=== PATIENT | female | born 1965 | race Caucasian/White ===

== ENCOUNTER → 2023-06-20 11:44 | Outpatient (REF) | payer MEDICARE, BC, SELFPAY | LOC: WDC 11:44 | PROVIDERS: ATTENDING PHYSICIAN Obstetrics & Gynecology; FAMILY PHYSICIAN Nurse Practitioner Family | DX: Z12.31 Encounter for screening mammogram for malignant neoplasm of breast (principal) | CPT/HCPCS: 77063; 77067 ==

== ENCOUNTER → 2023-07-15 06:26 | Day surgery (SDC) | payer BC, MEDICARE, SELFPAY | LOC: GI 06:26 | PROVIDERS: ATTENDING PHYSICIAN Internal Medicine; FAMILY PHYSICIAN Nurse Practitioner Family | DX: Z12.11 Encounter for screening for malignant neoplasm of colon (principal); D12.3 Benign neoplasm of transverse colon; D17.79 Benign lipomatous neoplasm of other sites; K57.30 Diverticulosis of large intestine without perforation or abscess without bleeding; K64.9 Unspecified hemorrhoids; Z86.010 Personal history of colon polyps | CPT/HCPCS: 45385; 45380; 88305 ==

== ENCOUNTER 2024-03-12 13:00 | Emergency (ER) | payer BC, MEDICARE, SELFPAY ==
[2024-03-12 13:02] VITALS: BP 150/85
[2024-03-12 13:33] LABS: % Basophils 0.5 % (0-2); % Eosinophils 1.7 % (0-6); % Immature Granulocytes 0.3 % (0-0.5); % Lymphocytes 16.7 % (20.5-51.1); % Neutrophils 75.8 % (42.2-75.2); Absolute Eosinophils 0.2 10^3/uL (0-0.7); Absolute Lymphocytes 1.5 10^3/uL (1.2-3.4); Absolute Monocytes 0.4 10^3/uL (0.1-0.6); Absolute Neutrophils 6.6 10^3/uL (1.4-6.5); Hematocrit 39.3 % (37.0-47.0); Mean Corp Hgb Conc. 33.1 g/dL (33.0-37.0); Mean Corpuscular Hgb 29.5 pg (27.0-31.0); Mean Corpuscular Volume 89.3 fL (81.0-99.0); Mean Platelet Volume 9.5 fL (7.4-10.4); Nucleated Red Blood Cells % 0 %; Platelet Count 275 10^3/uL (130-400); Red Cell Dist. Width 13.4 % (11.5-14.5); White Blood Cell Count 8.7 10^3/uL (4.8-10.8)
[2024-03-12 13:47] LABS: ALT (SGPT) 24 U/L (0-35); AST (SGOT) 26 U/L (14-36); Albumin 4.4 g/dl (3.5-5.0); Alkaline Phosphatase 53 U/L (38-126); Blood Urea Nitrogen 19 mg/dl (7-17); Calcium 9.3 mg/dl (8.4-10.2); Carbon Dioxide 26 mmol/L (22-30); Chloride 100 mmol/L (98-107); Glucose 103 mg/dl (70-99); Potassium 4.4 mmol/L (3.5-5.1); Sodium 134 mmol/L (135-145); Total Bilirubin 0.2 mg/dl (0.2-1.3); Total Protein 7.2 g/dl (6.3-8.2); eGFR > 60.00
[2024-03-12 14:00] LABS: Troponin I < 0.012 ng/ml
--- NOTE | 2024-03-12 16:04 | ED.GENMED ---
History of Present Illness
General
Chief Complaint: Chest Pain
Source: patient
Exam Limitations: none
Time Seen by Provider: 03/12/24 16:03
Nursing documentation reviewed up to this point in time: agreed with
History of Present Illness
History of Present Illness:
58-year-old female with history of sleep apnea with CPAP, ablation for SVT x 2, last in 1999, anxiety/depression presents for 4 or 5 days of intermittent left breast area chest pain that started the evening after she was shovelling snow. She states
this morning since 11 AM it was nonstop for about 2 hours and now it is 3/10. There were no associated symptoms such as diaphoresis, nausea, shortness of breath. She has taken nothing for the pain
Past History
Past History
ED Past Medical History: Arrthythmia (svt w ablation) and Psychiatric (anxiety/depression)
ED Past Surgical History: Cardiac (Cardiac ablation x2) and Orthopedic
Social History
Tobacco: Non-smoker
Alcohol: None
Drug: None
Personal:
Living: with family
Employment: Not employed
Review of Systems
Review of Systems
Allergies reviewed?: Yes
All Other Systems: ROS reviewed and negative except as documented in HPI and ROS
Constitutional: Denies fever or fatigue
Respiratory: Denies trouble breathing
Cardiac: Reports chest pain; Denies diaphoresis, palpitations or syncope
ABD/GI: Denies abdominal pain or nausea
Musculoskeletal: Reports no symptoms
Skin: Reports no symptoms
Neurological: Reports no symptoms
Phy Exam
Physical Exam
Physical Exam:
GENERAL: No acute distress. A&Ox3.
CONSTITUTIONAL: Afebrile.
EYES: clear, conjunctivae normal
ENMT: moist mucus membranes, Pharynx nl
RESPIRATORY: Regular respirations, nonlabored, lungs clear.
CARDIOVASCULAR: Regular rate and rhythm, no murmurs, no rubs.
GI: Soft, nontender, normal BS
MUSCULOSKELETAL: Chest wall, breast nontender to compression/palpation, moves with ease. Well perfused.
SKIN: Warm, dry, pink
PSYCH: Normal mood and affect. Well kept, interactive and appropriate
NEUROLOGIC: Awake, alert and oriented. No focal neurological deficits
Scores
Heart Score for Chest Pain Patients
STEMI patient?: Not applicable
Course
Orders/Labs/Results
Orders:
Orders
03/12/24 13:00
ECG [Electrocardiogram (*1)] Urgent
Reason for Study: Chest Pain
EKG- Treatment ONCE
03/12/24 13:18
Complete Blood Count/With Diff Urgent
Comprehensive Metabolic Panel Urgent
03/12/24 13:19
Troponin I Urgent
03/12/24 16:22
CR Chest - 2 Views Urgent
Comment:
Reason For Exam: left chest pain
Abnormal Lab Results
03/12/24
13:18
Absolute Neuts (auto) 6.6 H 10^3/uL
(1.4-6.5)
Neutrophils % 75.8 H %
(42.2-75.2)
Lymphocytes % 16.7 L %
(20.5-51.1)
Sodium 134 L mmol/L
(135-145)
BUN 19 H mg/dl
(7-17)
Glucose 103 H mg/dl
(70-99)
03/12/24 13:18
03/12/24 13:18
Vital Signs
Initial and Last Documented VS:
Initial Vital Signs
Temp Pulse Resp BP Pulse Ox
98.1 F 78 18 150/85 99
03/12/24 13:02 03/12/24 13:02 03/12/24 13:02 03/12/24 13:02 03/12/24 13:02
Last Documented Vital Signs
Temp Pulse Resp BP Pulse Ox
98.1 F 78 16 129/82 96
03/12/24 13:02 03/12/24 16:46 03/12/24 16:46 03/12/24 16:46 03/12/24 16:46
MDM/Problems Addressed
Differential Diagnosis Includes:
ACS, musculoskeletal pain, GERD
MDM/Problems Addressed:
58-year-old female with history of sleep apnea with CPAP, ablation for SVT x 2, last in 1999, anxiety/depression presents for 4 or 5 days of intermittent left breast area chest pain that started the evening after she was shovelling snow. . She
states this morning since 11 AM it was nonstop for about 2 hours and now it is 3/10. There were no associated symptoms such as diaphoresis, nausea, shortness of breath. She has taken nothing for the pain
EKG: NSR with occasional PVCs
Afebrile, NAD
CBC, CMP normal
Troponin normal
Patient reassured.
She was referred to the cardiology hotline
Father with triple bypass age early 60's
*Critical Care Note
Total Time (30-74mins, 75-104mins- exclusive of procedures): Not Applicable
ED Attending Note
-
Portions of this chart may have been created with voice recognition software.� Occasional wrong word or��sound alike� substitutions may have occurred due to the inherent limitations of voice recognition software.
Discharge Plan
Departure
Patient Disposition: Home (Routine Discharge)
Date of Disposition: 03/12/24
Time of Disposition: 16:19
Patient with high blood pressure during this ER visit?: No
Condition: Good
Discharge Problem:
Atypical chest pain
Instructions: Chest Pain That Is Not Caused by the Heart (DC), Acid Reflux and GERD in Adults (DC), Chest Pain DCA Follow Up
Prescriptions:
No Action
cetirizine 10 MG tablet
10 mg PO DAILY
[id number]-FA-vit K [Multi For Her] 1 EACH capsule
1 ea PO DAILY
calcium phosphate-vitamin D3 1 EACH tablet,chewable
1 ea PO DAILY
Referrals:
Sapna Smith CRNP [Family Provider] -
Activity Restrictions/Additional Instructions:
As we discussed, nothing worrisome in your workup here today.
Someone from the cardiology group will call you early next week to make appointment for more thorough cardiac evaluation.
Return here immediately with worsening pain, chest pain with breaking out in a sweat, nausea or vomiting, weakness or feeling sicker in any way.
You may try an unqi-amp-zpitdbm antacid such as Pepcid or Omeprazole for the next week to see if it helps and let the forest officer know if it helps
Interventions
Interventions:
*Risk Screen - Suicide Last Done: 03/12/24 13:02
*General Assessment Last Done: 03/12/24 13:02
*Neglect/Abuse Screening Last Done: 03/12/24 13:02
*ED COVID-19 Vaccine History Last Done: 03/12/24 16:46
*Nursing Disposition Last Done: 03/12/24 16:47
ED- Cardiac Assessment Last Done: 03/12/24 16:46
Discharge Date and Time
Discharge Date/Time: 03/12/24 16:48
Print Language: HEBREW
[2024-03-12 16:46] VITALS: BP 129/82
== END 2024-03-12 16:48 | disposition home or self-care (01) ==
LOC: EMR 13:00
PROVIDERS: Emergency Medicine; EMERGENCY PHYSICIAN Emergency Medicine; FAMILY PHYSICIAN Nurse Practitioner Family
DX: R07.89 Other chest pain (principal)
CPT/HCPCS: 99285; 71046; 80053; 84484; 85025; 93005

== ENCOUNTER → 2024-06-23 11:33 | Outpatient (REF) | payer BC, MEDICARE, SELFPAY | LOC: WDC 11:33 | PROVIDERS: ATTENDING PHYSICIAN Obstetrics & Gynecology; FAMILY PHYSICIAN Nurse Practitioner Family | DX: Z12.31 Encounter for screening mammogram for malignant neoplasm of breast (principal) | CPT/HCPCS: 77063; 77067 ==

== ENCOUNTER → 2024-07-09 15:43 | Outpatient (REF) | payer BC, MEDICARE, SELFPAY | LOC: RCS 15:43 | PROVIDERS: ATTENDING PHYSICIAN Internal Medicine Cardiovascular Disease; FAMILY PHYSICIAN Nurse Practitioner Family | DX: R07.89 Other chest pain (principal) | CPT/HCPCS: 93306 ==

== ENCOUNTER → 2024-07-15 08:59 | Outpatient (REF) | payer BC, MEDICARE, SELFPAY | LOC: RCS 08:59 | PROVIDERS: ATTENDING PHYSICIAN Internal Medicine Cardiovascular Disease; FAMILY PHYSICIAN Nurse Practitioner Family | DX: R07.89 Other chest pain (principal) | CPT/HCPCS: 93017; 93350 ==